=== PATIENT | male | born 2000 | race Caucasian/White ===

== ENCOUNTER 2022-08-16 02:31 | Emergency (ER) | payer OTHER ==
[2022-08-16] MEDS ORDERED: Ondansetron PF 4 MG/2 ML Vial ONE (02:46)
[2022-08-16 05:09] LABS: #Lymphocytes 1.6 thou/uL (1.20-3.40); #Monocytes 0.3 thou/uL (0.11-0.59); #Neutrophils 12.5 thou/uL (1.40-6.50); %Basophils 0.2 % (0.0-1.0); %Eosinophils 0.3 % (0.0-10.0); %Monocytes 2.4 % (0.0-4.0); %Neutrophils 86.2 % (31.0-61.0); Hemoglobin 15.1 g/dL (14.0-18.0); Mean Corpuscular HGB CONC 34.7 g/dL (32.0-36.0); Mean Corpuscular Hemoglobin 31.4 pg (25.0-35.0); Mean Corpuscular Volume 90.5 fl (78.0-98.0); Mean Platelet Volume 7.9 fL (7.4-10.4); Platelet Count 295 10x3/uL (130-400); RBC Distribution Width 11.9 % (11.5-14.5); Red Blood Cell (RBC) Count 4.81 mill/uL (4.00-5.20); White Blood Cell (WBC) Count 14.5 10x3/uL (4.8-10.8)
[2022-08-16 05:34] LABS: ALT (SGPT) 11 U/L (8-55); AST (SGOT) 18 U/L (5-34); Albumin 4.4 g/dL (3.5-5.0); Alkaline Phosphatase 57 U/L (50-130); Anion Gap 15 mmol/L (10-20); BUN (Urea Nitrogen) 9 mg/dL (8.9-20.6); Bilirubin, Total 0.4 mg/dL (0.2-1.2); Calc. Creatinine Clearance 0 mL/min (70-130); Calcium 8.8 mg/dL (7.8-10.44); Carbon Dioxide 19 mmol/L (22-29); Chloride 113 mmol/L (98-107); Estimated GFR 127; Globulin 2.5 g/dL (2.4-3.5); Glucose 110 mg/dL (70-105); Potassium 4.3 mmol/L (3.5-5.1); Protein, Total 6.9 g/dL (6.0-8.3); Sodium 143 mmol/L (136-145)
== END 2022-08-16 10:41 | disposition home or self-care (01) ==
LOC: ERS 02:31
DX: F10.129 Alcohol abuse with intoxication, unspecified (principal); D72.829 Elevated white blood cell count, unspecified; Y90.9 Presence of alcohol in blood, level not specified
CPT/HCPCS: 36415; 80053; 85025; 96374; J2405